=== PATIENT | male | born 1975 | race Caucasian/White ===

== ENCOUNTER 2017-03-24 10:12 | Inpatient (IN) | payer MEDICARE, MEDICAID ==
[~2017-03-24] VITALS: Ht 185.4 cm; Wt 60.9 kg
[~2017-03-24 10:12] MED LIST: BUPR-93 PO; DIVA500T35 PO; RISP1TAB89 PO
[2017-03-24 11:59] VITALS: BP 122/73
[2017-03-24] MEDS ORDERED: ZOLPIDEM TARTRATE 10 MG TABLET PO PRN (12:00)
[2017-03-24] MEDS ORDERED: LORazepam 2 MG TABLET PO PRN (12:00)
[2017-03-24] MEDS ORDERED: HALOPERIDOL 5 MG TABLET PO PRN (12:00)
[2017-03-24] MEDS ORDERED: PNEUMOCOCCAL VACCINE POLYVALENT 0.5 ML VIAL [PPSV23] IM ONE (12:45)
[2017-03-24] MEDS ORDERED: INFLUENZA VIRUS VACCINE QVS 2017-18 (3YR+)/PF 60 MCG/0.5 ML SYRINGE IM ONE (12:45)
[2017-03-24 16:11] VITALS: BP 125/66
[2017-03-25 01:28] VITALS: BP 112/80
[2017-03-25 07:53] LABS: BASOPHILS % (AUTO) 0.6 % (0.0-2.0); EOSINOPHILS % (AUTO) 1.6 % (1.0-6.0); HEMATOCRIT 42.8 % (41-53); HEMOGLOBIN 14.6 g/dL (13.5-17.5); LYMPHOCYTES # (AUTO) 2.5 K/uL (1.0-4.8); LYMPHOCYTES % (AUTO) 26.1 % (22.0-44.0); MEAN CORPUSCULAR HEMOGLOBIN 31.8 pg (26.0-34.0); MEAN CORPUSCULAR HGB CONC 34.1 G/dL (31.0-37.0); MEAN CORPUSCULAR VOLUME 93 fL (80-100); MONOCYTES # (AUTO) 0.8 K/uL (0.1-1.0); NEUTROPHILS # (AUTO) 6.2 K/uL (1.8-7.7); NEUTROPHILS % (AUTO) 63.7 % (40.0-70.0); PLATELET COUNT (AUTO) 386 K/uL (150-450); RED BLOOD CELL COUNT(AUTO) 4.59 MIL/uL (4.50-5.90); RED CELL DISTRIBUTION WIDTH 14.5 % (11.5-14.5)
[2017-03-25] MEDS: HALOPERIDOL 5 MG TABLET PO SCH ×2 (08:21→16:03)
[2017-03-25] MEDS: BENZTROPINE MESYLATE 0.5 MG TABLET PO SCH ×2 (08:21→16:03)
[2017-03-25] MEDS: NICOTINE 21 MG/24 HOUR PATCH TD SCH (08:22)
[2017-03-25 08:23] VITALS: BP 123/76
[2017-03-25 08:58] LABS: HEMOGLOBIN A1C 5.8 % (4.5-6.2)
[2017-03-25 09:33] LABS: ALANINE AMINOTRANSFERASE 23 U/L (12-78); ALBUMIN 3.3 g/dL (3.4-5.0); ALKALINE PHOSPHATASE 127 U/L (46-116); ANION GAP 12 mmol/L (8-16); ASPARTATE AMINOTRANSFERASE 18 U/L (15-37); BILIRUBIN,TOTAL 0.6 mg/dL (0.1-1.0); CALCIUM, TOTAL 8.9 mg/dL (8.8-10.5); CARBON DIOXIDE 26 mmol/L (22-29); CHLORIDE 105 mmol/L (98-107); CHOL/HDL RATIO 2.6 (4.2-7.3); CHOLESTEROL 153 mg/dL (131-200); CREATININE 0.68 mg/dL (0.60-1.30); FREE T4 (FREE THYROXINE) 0.93 ng/dL (0.76-1.46); GLOMERULAR FILTR. RATE CALC > 60 mL/min (>60); GLUCOSE,RANDOM 80 mg/dL (70-110); HDL CHOLESTEROL 59 mg/dL (40-60); LDL CHOL (CALC.) 66 mg/dL (0-130); POTASSIUM 4.8 mmol/L (3.5-5.1); SODIUM SERUM 143 mmol/L (136-145); THYROID STIMULATING HORMONE 0.84 uIU/mL (0.36-3.74); TOTAL PROTEIN, SERUM 6.2 g/dL (6.4-8.2); TRIGLYCERIDES 139 mg/dL (15-150); UREA NITROGEN, BLOOD 12 mg/dL (7-18)
[2017-03-25] MEDS ORDERED: BuPROPion HCL 75 MG TABLET PO SCH (14:45)
[2017-03-25] MEDS ORDERED: BuPROPion HCL XL 150 MG ER TABLET PO SCH (15:00)
[2017-03-25 16:30] VITALS: BP 112/89
[2017-03-26 06:28] VITALS: BP 106/63
[2017-03-26 08:11] VITALS: BP 111/70
[2017-03-26] MEDS: BuPROPion HCL 150 MG SR TABLET PO SCH (08:16)
[2017-03-26] MEDS: BENZTROPINE MESYLATE 0.5 MG TABLET PO SCH ×2 (08:16→16:10)
[2017-03-26] MEDS: HALOPERIDOL 5 MG TABLET PO SCH ×2 (08:16→16:10)
[2017-03-26] MEDS: NICOTINE 21 MG/24 HOUR PATCH TD SCH (08:17)
[2017-03-26 16:06] VITALS: BP 122/81
[2017-03-27 06:15] VITALS: BP 103/68
[2017-03-27] MEDS: BuPROPion HCL 150 MG SR TABLET PO SCH (08:11)
[2017-03-27] MEDS: BENZTROPINE MESYLATE 0.5 MG TABLET PO SCH ×2 (08:11→16:32)
[2017-03-27] MEDS: NICOTINE 21 MG/24 HOUR PATCH TD SCH (08:12)
[2017-03-27] MEDS: HALOPERIDOL 5 MG TABLET PO SCH ×2 (08:12→16:32)
[2017-03-27 08:22] VITALS: BP 110/66
[2017-03-27] MEDS ORDERED: BuPROPion HCL 150 MG SR TABLET PO ONE (13:15)
[2017-03-27 16:02] VITALS: BP 107/71
[2017-03-28 06:30] VITALS: BP 103/65
[2017-03-28 08:09] VITALS: BP 106/70
[2017-03-28] MEDS: BENZTROPINE MESYLATE 0.5 MG TABLET PO SCH ×2 (08:09→16:15)
[2017-03-28] MEDS: HALOPERIDOL 5 MG TABLET PO SCH ×2 (08:09→16:15)
[2017-03-28] MEDS: NICOTINE 21 MG/24 HOUR PATCH TD SCH (08:09)
[2017-03-28] MEDS ORDERED: BuPROPion HCL 150 MG SR TABLET PO SCH (09:00)
[2017-03-28] MEDS ORDERED: HALO5 PO (13:40)
[2017-03-28] MEDS ORDERED: BUPR150SR PO (13:40)
[2017-03-28] MEDS ORDERED: BENZ0.5T6 PO (13:40)
== END 2017-03-28 17:49 | disposition home or self-care (01) | DRG 885 ==
LOC: B2X 11:58
PROVIDERS: ADMIT Psychiatry & Neurology Psychiatry; ATTEND Psychiatry & Neurology Psychiatry
DX: F29 Unspecified psychosis not due to a substance or known physiological condition (principal); F15.90 Other stimulant use, unspecified, uncomplicated; F41.9 Anxiety disorder, unspecified; I25.10 Atherosclerotic heart disease of native coronary artery without angina pectoris; J44.9 Chronic obstructive pulmonary disease, unspecified; Z28.21 Immunization not carried out because of patient refusal; Z59.0 Homelessness; F17.200 Nicotine dependence, unspecified, uncomplicated
CPT/HCPCS: 83036; 84439; 84443